=== PATIENT | male | born 1960 | race Caucasian/White ===

== ENCOUNTER 2016-08-14 12:44 | Emergency (ER) | payer BC ==
[2016-08-14 13:09] VITALS: BP 133/81
[2016-08-14] MEDS ORDERED: Acetaminophen TAB* 325 MG PO ONE (13:13)
--- NOTE | 2016-08-14 13:16 | UC ---
Throat Pain/Nasal Abelardo HPI - HPI Summary HPI Summary: cough, congestion, runny nose and eyes burning, fever, muscle and body aches x 2 days. - History of Current Complaint Chief Complaint: UCRespiratory Stated Complaint: SINUS,EYE,CONGESTION Time Seen by Provider: 08/14/16 13:13 Hx Obtained From: Patient Onset/Duration: Gradual Onset, Lasting Days Severity: Moderate Pain Intensity: 5 Pain Scale Used: 0-10 Numeric Cough: Sputum Appears - white Associated Signs & Symptoms: Positive: Sinus Discomfort, Nasal Discharge, Fever Related History: Smoking - Allergies/Home Medications Allergies/Adverse Reactions: Allergies Allergy/AdvReac Type Severity Reaction Status Date / Time No Known Allergies Allergy Verified 08/14/16 13:03 PMH/Surg Hx/FS Hx/Imm Hx Endocrine History Of: Denies: Diabetes, Thyroid Disease Cardiovascular History Of: Denies: Cardiac Disorders, Hypertension Respiratory History Of: Reports: Bronchitis Denies: COPD, Asthma GI/ History Of: Denies: Ulcer - Surgical History Surgical History: Yes Surgery Procedure, Year, and Place: Prostate surgey 12/24 - Family History Known Family History: Positive: Hypertension - MOTHER, Diabetes - MOTHER - Social History Occupation: Employed Full-time Alcohol Use: Occasionally Substance Use Type: Excessive Caffeine Smoking Status (MU): Heavy Every Day Tobacco Smoker Type: Cigarettes Amount Used/How Often: 1 1/2 PPD Household Exposure Type: Cigarettes Review of Systems Constitutional: Fever Skin: Negative Eyes: Drainage - clear ENT: Sore Throat, Nasal Discharge Respiratory: Cough Cardiovascular: Negative Gastrointestinal: Negative Genitourinary: Negative Motor: Negative Neurovascular: Negative Musculoskeletal: Myalgia Neurological: Headache Psychological: Negative All Other Systems Reviewed And Are Negative: Yes Physical Exam Triage Information Reviewed: Yes Appearance: Well-Nourished, Ill-Appearing, Pain Distress Vital Signs: Initial Vital Signs Temp 102.1 F 08/14/16 13:04 Pulse 112 08/14/16 13:04 Resp 18 08/14/16 13:04 BP 133/81 08/14/16 13:04 Pulse Ox 94 08/14/16 13:04 Vital Signs Reviewed: Yes Eyes: Positive: Conjunctiva Clear ENT: Positive: Hearing grossly normal, Pharyngeal erythema, TMs normal, Muffled/ hoarse voice Neck: Positive: Supple, Nontender Respiratory: Positive: Lungs clear, Normal breath sounds, No respiratory distress Cardiovascular: Positive: RRR, No Murmur, Pulses Normal, Brisk Capillary Refill Abdomen Description: Positive: Nontender, Soft. Negative: Distended, Guarding Bowel Sounds: Positive: Present Musculoskeletal: Positive: Strength Intact, ROM Intact Neurological: Positive: Alert, Muscle Tone Normal Psychological Exam: Normal Skin Exam: Normal Throat Pain/Nasal Course/Dx - Course Course Of Treatment: influenza A positive. - Differential Dx/Diagnosis Differential Diagnosis/HQI/PQRI: Influenza, Otitis Media, Pharyngitis, Sinusitis , URI Provider Diagnoses: influenza A Discharge - Discharge Plan Condition: Stable Disposition: HOME Prescriptions: Oseltamivir CAP* [Tamiflu CAP*] 75 mg PO BID #10 cap Patient Education Materials: How to Stop Smoking (ED), Influenza (ED) Forms: *Work Release Referrals: Shiv Gordon DO [Primary Care Provider] - Additional Instructions: You have influenza A. We gave you acetaminophen 650 mg at 1:20pm. You may take 500mg x 2 every four hours for pain and fever, up to four times a day. Return to urgent care if you have any new or worsening symptoms.
== END 2016-08-14 14:22 | disposition home or self-care (01) ==
LOC: UCCORT 12:44
DX: J10.1 Influenza due to other identified influenza virus with other respiratory manifestations (principal); F17.210 Nicotine dependence, cigarettes, uncomplicated
CPT/HCPCS: 87502; 99212; A9270-GY; G0463

== ENCOUNTER 2017-01-31 12:05 | Emergency (ER) | payer BC ==
[2017-01-31 13:04] VITALS: BP 141/88
--- NOTE | 2017-01-31 14:12 | UC ---
Dental HPI - HPI Summary HPI Summary: Pt presents with c/o right lower jaw and gum swelling. Pt has history of poor dentition. - History of Current Complaint Chief Complaint: UCDentalProblem Stated Complaint: DENTAL COMPLAINT Time Seen by Provider: 01/31/17 14:00 Hx Obtained From: Patient Onset/Duration: Gradual Onset, Lasting Days, Still Present, Worse Since - onset Severity: Moderate Aggravating Factor(s): Chewing Related History: Discharge, Swelling - Allergies/Home Medications Allergies/Adverse Reactions: Allergies Allergy/AdvReac Type Severity Reaction Status Date / Time No Known Allergies Allergy Verified 08/14/16 13:03 Home Medications: Home Medications Acetaminophen [Acetaminophen Extra Stren] 1,000 mg PO Q6H PRN 01/31/17 [History Confirmed 01/31/17] Atorvastatin* [Lipitor 10 MG*] 10 mg PO DAILY 01/31/17 [History Confirmed ] Ibuprofen [Ibuprofen 200 MG] 1,000 mg PO Q6H PRN 01/31/17 [History Confirmed ] PMH/Surg Hx/FS Hx/Imm Hx Previously Healthy: Yes - Surgical History Surgical History: Yes Surgery Procedure, Year, and Place: Prostate surgey 12/24 - Family History Known Family History: Positive: Hypertension - MOTHER, Diabetes - MOTHER - Social History Occupation: Retired Lives: With Family Alcohol Use: Occasionally Substance Use Type: Excessive Caffeine Smoking Status (MU): Heavy Every Day Tobacco Smoker Type: Cigarettes Amount Used/How Often: 1 1/2 PPD Length of Time of Smoking/Using Tobacco: 40 Have You Smoked in the Last Year: Yes Household Exposure Type: Cigarettes Review of Systems Constitutional: Negative Skin: Negative Eyes: Negative ENT: Dental Pain Respiratory: Negative Cardiovascular: Negative Gastrointestinal: Negative Genitourinary: Negative Motor: Negative Neurovascular: Negative Musculoskeletal: Negative Neurological: Negative Psychological: Negative Is Patient Immunocompromised?: No All Other Systems Reviewed And Are Negative: Yes Physical Exam Triage Information Reviewed: Yes Appearance: Well-Appearing Vital Signs: Initial Vital Signs Temp 98.8 F 01/31/17 12:59 Pulse 84 01/31/17 12:59 Resp 14 01/31/17 12:59 BP 141/88 01/31/17 12:59 Pulse Ox 99 01/31/17 12:59 Vital Signs Reviewed: Yes Eye Exam: Normal ENT Exam: Normal Dental: Positive: Gross Decay/Caries @ - generalized, Dental Fracture @ - right lower teeth, Abscess @ - right lower Neck exam: Normal Respiratory Exam: Normal Cardiovascular Exam: Normal Musculoskeletal Exam: Normal Neurological Exam: Normal Psychological Exam: Normal Skin Exam: Normal Dental Complaint Course/Dx - Differential Dx/Diagnosis Differential Diagnosis/Dx: Dental Abscess, Dental Caries, Fractured Tooth Provider Diagnoses: dental abscess. poor dentition. dental fracture Discharge - Discharge Plan Condition: Stable Disposition: HOME Prescriptions: Ketorolac TAB * [Toradol TAB *] 10 mg PO Q8H PRN #6 tab PRN Reason: Pain Penicillin VK 500 MG TAB(NF) [Penicillin VK 500 mg Tab] 500 mg PO Q12H #40 tab predniSONE TAB* [Deltasone TAB*] 20 mg PO DAILY #4 tab Patient Education Materials: Dental Abscess (ED) Referrals: Shiv Gordon DO [Primary Care Provider] - If Needed Additional Instructions: Please follow up with your dental care provider as soon as possible.
== END 2017-01-31 14:23 | disposition home or self-care (01) ==
LOC: UCCORT 12:05
DX: S02.5XXA Fracture of tooth (traumatic), initial encounter for closed fracture (principal); F17.210 Nicotine dependence, cigarettes, uncomplicated; X58.XXXA Exposure to other specified factors, initial encounter
CPT/HCPCS: 99212; G0463

== ENCOUNTER 2017-08-21 15:22 | Emergency (ER) | payer BC ==
[2017-08-21 15:40] VITALS: BP 125/82
--- NOTE | 2017-08-21 15:50 | UC ---
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 Cough/runny nose and fatigue x2 days. Denies fever/ chills. Taking otc sinus med prn w/ no relief. " -no knwn fevers. smokes 1.5 PPD. never been told he had COPD, but has never been tested. not on any inhalers. denies sinus pain/pressure. + wheezing from chest. denies asthma. - History of Current Complaint Chief Complaint: UCRespiratory Stated Complaint: congestion/weak Time Seen by Provider: 08/21/17 15:48 Pain Intensity: 0 - Allergies/Home Medications Allergies/Adverse Reactions: Allergies Allergy/AdvReac Type Severity Reaction Status Date / Time No Known Allergies Allergy Verified 08/21/17 15:33 Home Medications: Home Medications Cholesterol Med 10 mg EVERY OTHER DAY 08/21/17 [History] PMH/Surg Hx/FS Hx/Imm Hx Previously Healthy: Yes Endocrine History: Dyslipidemia GI/ History: Other - prostate ca, s/p prostatectomy. takes 3 meds for prostate but unsure what. Other GI/ History: prostate ca, s/p prostatectomy. takes 3 meds for prostate but unsure what. - Surgical History Surgical History: Yes Surgery Procedure, Year, and Place: Prostate surgey 12/24 - Family History Known Family History: Positive: Hypertension - MOTHER, Diabetes - MOTHER - Social History Alcohol Use: None Substance Use Type: None Smoking Status (MU): Heavy Every Day Tobacco Smoker Type: Cigarettes Amount Used/How Often: 1 1/2 PPD Length of Time of Smoking/Using Tobacco: 40 Have You Smoked in the Last Year: Yes Household Exposure Type: Cigarettes Review of Systems Constitutional: Fatigue Skin: Negative Eyes: Negative ENT: Sinus Congestion Respiratory: Cough Cardiovascular: Negative Gastrointestinal: Negative Genitourinary: Negative Motor: Negative Neurovascular: Negative Musculoskeletal: Negative Neurological: Negative Psychological: Negative Is Patient Immunocompromised?: No All Other Systems Reviewed And Are Negative: Yes Physical Exam Triage Information Reviewed: Yes Appearance: Well-Appearing, No Pain Distress, Well-Nourished - + cigarrette smoke smell. very pleasant Vital Signs: Initial Vital Signs Temp 98.1 F 08/21/17 15:33 Pulse 96 08/21/17 15:33 Resp 18 08/21/17 15:33 BP 125/82 08/21/17 15:33 Pulse Ox 97 08/21/17 15:33 Vital Signs Reviewed: Yes Eye Exam: Normal ENT: Positive: Pharynx normal, Nasal drainage, TMs normal, Uvula midline. Negative: Hoarse voice, Sinus tenderness Neck exam: Normal Neck: Positive: Supple, Nontender, No Lymphadenopathy Respiratory: Positive: No accessory muscle use, Rhonchi. Negative: Crackles, Stridor, Wheezing Cardiovascular Exam: Normal Cardiovascular: Positive: RRR, No Murmur Abdomen Description: Positive: Nontender, Soft Musculoskeletal Exam: Normal Neurological Exam: Normal Psychological Exam: Normal Skin Exam: Normal UC Diagnostic Evaluation - Laboratory O2 Sat by Pulse Oximetry: 97 Respiratory Course/Dx - Course Course Of Treatment: Bronchitis and likely COPD w/ extesnive smoking hx of 1.5 PPD. discussed that I recommend he should be tested for COPD . -recommend smoking cessation. -amx x 10 d. -probiotic daily w/ abx. -symbocirt 80 1 p bid, rinse mouth after'. -alb q4-6 hr prn - Differential Dx/Diagnosis Differential Diagnosis/HQI/PQRI: Bronchitis, Lower Resp Infection, Sinusitis Provider Diagnoses: Bronchitis Discharge - Sign-Out/Discharge Documenting (check all that apply): Discharge/Admit/Transfer - Discharge Plan Condition: Stable Disposition: HOME Prescriptions: Albuterol HFA INHALER* [Ventolin HFA Inhaler*] 2 puff INH Q4H PRN 30 Days #1 mdi PRN Reason: Cough Amoxicillin PO (*) [Amoxicillin 875 MG (*)] 875 mg PO BID #20 tab Budesonide/Formote 80/4.5(NF) [Symbicort 80/4.5 (NF)] 1 puff INH BID 30 Days #1 mdi Patient Education Materials: Acute Bronchitis (ED) Forms: *Gen. Provider Communication Referrals: Shiv Gordon DO [Primary Care Provider] - 6 Days Additional Instructions: Make sure to take a probiotic daily while on antibiotics to help prevent a potential complication of antibiotic use called c diff. Some well known brands that can be found OTC are florastor, [employer] and [employer]. Make sure to complete the entire prescription unless advised otherwise by your health care provider. - Billing Disposition and Condition Condition: STABLE Disposition: HOME
== END 2017-08-21 16:10 | disposition home or self-care (01) ==
LOC: UCCORT 15:22
DX: J40 Bronchitis, not specified as acute or chronic (principal); F17.210 Nicotine dependence, cigarettes, uncomplicated; E78.5 Hyperlipidemia, unspecified
CPT/HCPCS: 99212; G0463

== ENCOUNTER 2018-06-11 14:09 | Emergency (ER) | payer BC ==
[2018-06-11 14:35] VITALS: BP 128/71
--- NOTE | 2018-06-11 15:30 | UC ---
Respiratory Complaint HPI - HPI Summary HPI Summary: 58-year-old male presents with fever, chills, and occasionally productive cough for the past week. States that onset of symptoms his fever was as high as 101.5 F however has had no fever in the past 2 days. Symptoms were also associated with some fatigue, general malaise, and body aches. Patient states his symptoms have been improving but wanted to be checked because the persistent cough. He was 2 pack-a-day smoker up until 2 weeks ago when he quit cold turkey. Denies ear pain, sore throat, chest pain, shortness of breath, wheezing, abdominal pain, nausea, vomiting, or diarrhea. - History of Current Complaint Chief Complaint: UCRespiratory Stated Complaint: COUGH,CHILLS Time Seen by Provider: 06/11/18 15:27 Hx Obtained From: Patient Pain Intensity: 0 - Allergies/Home Medications Allergies/Adverse Reactions: Allergies Allergy/AdvReac Type Severity Reaction Status Date / Time No Known Allergies Allergy Verified 06/11/18 14:32 Home Medications: Home Medications Prostate Med 1 tab PO DAILY 06/11/18 [History] PMH/Surg Hx/FS Hx/Imm Hx Previously Healthy: Yes Cancer History: Prostate Cancer - Surgical History Surgical History: Yes Surgery Procedure, Year, and Place: Prostate surgey 12/24 - Family History Known Family History: Positive: Hypertension - MOTHER, Diabetes - MOTHER - Social History Occupation: Employed Full-time Lives: With Family Alcohol Use: None Substance Use Type: None Smoking Status (MU): Heavy Every Day Tobacco Smoker Type: Cigarettes Amount Used/How Often: 1 1/2 PPD Length of Time of Smoking/Using Tobacco: 40 Have You Smoked in the Last Year: Yes Household Exposure Type: Cigarettes Review of Systems All Other Systems Reviewed And Are Negative: Yes Skin: Negative: Rash Eyes: Negative: Drainage, Eye Redness ENT: Negative: Sore Throat, Ear Ache, Nasal Discharge, Sinus Congestion, Sinus Pain/Tenderness Respiratory: Positive: Cough. Negative: Shortness Of Breath Cardiovascular: Negative: Palpitations, Chest Pain Gastrointestinal: Negative: Abdominal Pain, Vomiting, Diarrhea, Nausea Genitourinary: Positive: Negative Musculoskeletal: Positive: Negative Neurological: Positive: Negative Physical Exam - Summary Physical Exam Summary: GENERAL APPEARANCE: Well developed, well nourished, alert and cooperative, and appears to be in no acute distress. EYES: Conjunctiva clear. No drainage. Vision is grossly intact. EARS: External auditory canals and tympanic membranes clear, hearing grossly intact. NOSE: No nasal discharge. THROAT: Pharynx normal No tonsilar inflammation, swelling, exudate, or lesions. Uvula midline. Oral cavity normal. Teeth and gingiva in good general condition. NECK: Neck supple, non-tender without lymphadenopathy. CARDIAC: Normal S1 and S2. No S3, S4 or murmurs. Rhythm is regular. There is no peripheral edema, cyanosis or pallor. Extremities are warm and well perfused. Capillary refill is less than 2 seconds. Peripheral pulses intact. LUNGS: Clear to auscultation without rales, rhonchi, wheezing or diminished breath sounds. Occasional loose, non-productive cough. ABDOMEN: Positive bowel sounds. Soft, nondistended, nontender. No guarding or rebound. No masses or hepatosplenomegally. MUSKULOSKELETAL: ROM intact to all extremities. No joint erythema or tenderness. Normal muscular development. Normal gait. SKIN: Skin normal color, texture and turgor with no lesions or eruptions. Triage Information Reviewed: Yes Vital Signs: Initial Vital Signs Temp 98.8 F 06/11/18 14:31 Pulse 94 06/11/18 14:31 Resp 18 06/11/18 14:31 BP 128/71 06/11/18 14:31 Pulse Ox 96 06/11/18 14:31 Vital Signs Reviewed: Yes Respiratory Course/Dx - Course Course Of Treatment: 58-year-old male presents with fever, chills, and occasionally productive cough for the past week. States that onset of symptoms his fever was as high as 101.5 F however has had no fever in the past 2 days. Symptoms were also associated with some fatigue, general malaise, and body aches. Patient states his symptoms have been improving but wanted to be checked because the persistent cough. He was 2 pack-a-day smoker up until 2 weeks ago when he quit cold turkey. Denies ear pain, sore throat, chest pain, shortness of breath, wheezing, abdominal pain, nausea, vomiting, or diarrhea. Afebrile. Vital signs stable. Exam revealed an adult male in no acute distress with an unremarkable exam except for an occasional loose, nonproductive cough. Based on his history I suspect that he likely had influenza. I am recommending continued symptomatic treatment including Tessalon Perles 1 capsule every 8 hours as needed for cough as well as some watchful waiting. He is to follow-up with his primary care provider in 5 days if symptoms do not continue to improve. Anticipatory guidance and warning symptoms were reviewed with the patient. Verbalizes understanding and agrees with plan of care. - Differential Dx/Diagnosis Differential Diagnosis/HQI/PQRI: Bronchitis, Influenza, Lower Resp Infection, Sinusitis Provider Diagnosis: Viral URI with cough Discharge - Sign-Out/Discharge Documenting (check all that apply): Patient Departure All imaging exams completed and their final reports reviewed: No Studies - Discharge Plan Condition: Stable Disposition: HOME Prescriptions: Benzonatate CAP* [Tessalon 100 MG CAP*] 100 mg PO TID PRN #30 cap PRN Reason: Cough Patient Education Materials: Upper Respiratory Infection (ED) Referrals: Shiv Gordon DO [Primary Care Provider] - 5 Days (If no improvement in symptoms.) Additional Instructions: Based on your history I suspect that you likely had the flu. Flu is caused by a virus and does not respond to antibiotics. Typically the flu will run its course over 7-10 days with the first 3-5 days being the worst symptoms. Your cough may linger for a couple weeks even when the other symptoms improve especially with your smoking history. Get plenty of rest. Drink plenty of fluids and stay well hydrated. Take Tessalon Perles 1 capsule every 8 hours as needed for cough. Take acetaminophen (Tylenol) or ibuprofen (Advil, Motrin) according to directions as needed for fever or pain. Follow up with your primary care provider in 5 days if symptoms do not improve. Seek immediate medical attention if you have persistent fever greater than 100.5 F despite taking acetaminophen or ibuprofen, have chest pain, shortness of breath, or any worsening of symptoms. - Billing Disposition and Condition Condition: STABLE Disposition: Home - Attestation Statements Provider Attestation: Per institutional requirements, I have reviewed the chart, however, I was not consulted specifically or made aware of this patient by the midlevel provider. I did not personally evaluate, interact with , or disposition this patient.
== END 2018-06-11 15:56 | disposition home or self-care (01) ==
LOC: UCCORT 14:09
DX: J06.9 Acute upper respiratory infection, unspecified (principal); R05 Cough; F17.210 Nicotine dependence, cigarettes, uncomplicated
CPT/HCPCS: 99212; G0463